=== PATIENT | male | born 1995 | race American Indian/Alaskan Native ===

== ENCOUNTER 2019-03-02 07:58 | Emergency (ER) | payer OTHER ==
[2019-03-02 08:21] VITALS: BP 124/75
[2019-03-02] MEDS ORDERED: predniSONE 20 MG TAB PO ONE (08:26)
[2019-03-02] MEDS ORDERED: CYCLOBENZAPRINE 10 MG TAB PO ONE (08:26)
[2019-03-02] MEDS ORDERED: HYDROcodone/ACETAMINOPHEN 5-325 MG TAB PO ONE (08:26)
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
== END 2019-03-02 09:38 | disposition home or self-care (01) ==
LOC: ED 07:58
DX: M79.18 Myalgia, other site (principal); R51 Headache; M54.5 Low back pain
CPT/HCPCS: 99283; J7512